=== PATIENT | female | born 1930 | race Hispanic/Latino ===

== ENCOUNTER 2020-02-16 23:37 | Inpatient (IN) | payer MEDICARE ==
[~2020-02-16] VITALS: Ht 152.4 cm; Wt 52.6 kg
[2020-02-17] VITALS (19 sets, daily range): BP systolic 125–152; BP diastolic 45–69
[2020-02-17] MEDS ORDERED: PROPOFOL 1000 MG/100 ML 100 ML IV ONE (00:13)
[2020-02-17] MEDS ORDERED: ACETAMINOPHEN 120 MG SUPPOSITORY RC ONE (00:45)
[2020-02-17] MEDS ORDERED: ZOSYN 3.375GM+NS 50ML 50 ML IV ONE (01:27)
[2020-02-17] MEDS ORDERED: ACETAMINOPHEN 650 MG SUPPOSITORY RC ONE (01:29)
[2020-02-17 01:42] LABS: BASOPHILS % (AUTO) 0.2 % (0.0-5.0); EOSINOPHILS % (AUTO) 0.4 % (0.0-8.0); HEMATOCRIT 45.5 % (36-48); LYMPHOCYTES % (AUTO) 8.3 % (21.0-51.0); MEAN CORPUSCULAR HEMOGLOBIN 27.1 pg (27.0-33.0); MEAN CORPUSCULAR HGB CONC 28.6 g/dL (32.0-36.0); MEAN CORPUSCULAR VOLUME 94.8 fL (79-99); MONOCYTES % (AUTO) 5.5 % (3.0-13.0); NUCLEATED RED BLOOD CELLS 1.4 % (0.0-0.19); PLATELET COUNT (AUTO) 158 K/uL (130-400); RED CELL DISTRIBUTION WIDTH 23.8 % (11.0-15.5)
[2020-02-17 01:47] LABS: APPEARANCE,URINE Cloudy (CLEAR); BILIRUBIN,URINE Moderate (NEGATIVE); COLOR,URINE Dark Yellow (YELLOW); GLUCOSE, URINE (UA) Negative (NEGATIVE); KETONES,URINE Trace mg/dL (NEGATIVE); LEUKOCYTE ESTERASE ,URINE Small (NEGATIVE); NITRATE,URINE Negative (NEGATIVE); OCCULT BLOOD,URINE Moderate (NEGATIVE); PROTEIN,URINE Trace mg/dL (NEGATIVE)
[2020-02-17 02:00] LABS: INR 1.12 (0.85-1.15); PARTIAL THROMBOPLASTIN TIME 24.4 SEC (26.3-35.5)
[2020-02-17 02:01] LABS: ABG BASE EXCESS -2.4 mmol/L (-2.0-3.0); ABG HCO3 18.4 mmol/L (21.0-28.0); ABG OXYGEN SATURATION 99.8 % (95.0-99.0); ABG PCO2 23 mmHg (32-45)
[2020-02-17 02:03] LABS: AMORPHOUS SEDIMENT,UR Few /LPF (None Seen); BACTERIA,URINE Moderate /HPF (None Seen); MUCUS,URINE Moderate LPF (None Seen); SQUAMOUS EPITHELIAL CELL,UR Moderate /HPF (0-2)
[2020-02-17 02:23] LABS: ALBUMIN 2.4 g/dL (3.5-5.0); CREATININE 2.4 mg/dL (0.5-1.5); POTASSIUM 3.7 mmol/L (3.5-5.1); TOTAL PROTEIN, SERUM 7.2 g/dL (6.0-8.3)
[2020-02-17 02:30] LABS: TROPONIN I 0.91 ng/mL (0.00-0.06)
[2020-02-17] MEDS ORDERED: 1/2 NORMAL SALINE 1,000 ML IV ONE (03:46)
[2020-02-17] MEDS ORDERED: NOREPINEPHRINE 4MG/NS 250ML IV SCH (04:30)
[2020-02-17 05:18] LABS: BASOPHILS % (AUTO) 0.2 % (0.0-5.0); EOSINOPHILS % (AUTO) 0.1 % (0.0-8.0); HEMATOCRIT 38.5 % (36-48); LYMPHOCYTES % (AUTO) 11.1 % (21.0-51.0); MEAN CORPUSCULAR HEMOGLOBIN 26.8 pg (27.0-33.0); MEAN CORPUSCULAR HGB CONC 28.8 g/dL (32.0-36.0); MONOCYTES % (AUTO) 4.6 % (3.0-13.0); NEUTROPHILS % (AUTO) 82.2 % (40.0-77.0); NUCLEATED RED BLOOD CELLS 1.8 % (0.0-0.19); PLATELET COUNT (AUTO) 119 K/uL (130-400); RED BLOOD CELL COUNT(AUTO) 4.14 MIL/uL (4.00-5.50); RED CELL DISTRIBUTION WIDTH 23.7 % (11.0-15.5); WHITE BLOOD COUNT (AUTO) 18.2 K/uL (4.8-10.8)
[2020-02-17 05:32] LABS: CREATININE 1.9 mg/dL (0.5-1.5); MAGNESIUM 2.4 mg/dL (1.80-2.40); PHOSPHORUS 2.6 mg/dL (2.5-4.9); TOTAL PROTEIN, SERUM 6.1 g/dL (6.0-8.3)
[2020-02-17 05:46] LABS: POTASSIUM 2.9 mmol/L (3.5-5.1)
[2020-02-17] MEDS ORDERED: POTASSIUM CHLORIDE 20MEQ/100ML 100 ML IV ONE (05:59)
--- NOTE | 2020-02-17 07:45 | NUR ---
FROM ER TO ICU. VS STABLE PT SEDATED WITH DIPRIVAN. RESPONDS TO PAINFUL STIMULUS. BRUISING AND FRAIL SKIN NOTED TO EXTREMITIES,SKIN TEAR TO LEFT BUTTOCK. PICTURES WILL BE TAKEN
[2020-02-17] MEDS ORDERED: HEPARIN SODIUM 5000UNIT/ML 1ML VIAL SQ SCH (09:00)
[2020-02-17] MEDS ORDERED: QUET100T33 PO (09:25)
[2020-02-17] MEDS ORDERED: SERT25TA5 PO (09:25)
[2020-02-17] MEDS ORDERED: MEMA10TA55 PO (09:25)
[2020-02-17] MEDS ORDERED: DONE10TA43 PO (09:25)
[2020-02-17] MEDS ORDERED: BUSP10TA3 PO (09:25)
[2020-02-17] MEDS ORDERED: METF-444 PO (09:25)
[2020-02-17] MEDS ORDERED: RALO60TA13 PO (09:25)
[2020-02-17] MEDS ORDERED: ERGO500014 PO (09:25)
[2020-02-17] MEDS ORDERED: MIDO5TAB4 PO (09:25)
[2020-02-17] MEDS ORDERED: MELO-108 PO (09:25)
[2020-02-17] MEDS ORDERED: MEGE400O5 (09:25)
[2020-02-17] MEDS: PANTOPRAZOLE 40 MG/VIAL IVP SCH (09:47)
--- NOTE | 2020-02-17 10:08 | NUR ---
FAMILY UPDATE. BENITEZ LIU. SHE WAS ABLE TO GIVE ME HX AND HOME MEDS
[2020-02-17] MEDS ORDERED: SUCCINYLCHOLINE CHLORIDE 20 MG/ML 10 ML VIAL IVP ONE (10:34)
[2020-02-17] MEDS ORDERED: ETOMIDATE 2 MG/ML 10 ML VIAL IVP ONE (10:34)
[2020-02-17] MEDS ORDERED: POTASSIUM CHLORIDE 10% ELIXIR 20 MEQ/15 ML UDCUP ONE (10:38)
[2020-02-17] MEDS ORDERED: POTASSIUM CHLORIDE 20MEQ/100ML 100 ML IV PRN (10:45)
[2020-02-17] MEDS ORDERED: LIDOCAINE HCL-MPF 1% 2ML VIAL IV PRN (10:45)
[2020-02-17] MEDS: POTASSIUM CHLORIDE 10% ELIXIR 20 MEQ/15 ML UDCUP PO PRN (11:32)
[2020-02-17] MEDS: PROPOFOL 1000 MG/100 ML 100 ML IV SCH (11:36)
[2020-02-17 12:32] LABS: BILIRUBIN,URINE Negative (NEGATIVE); COLOR,URINE Dark Yellow (YELLOW); GLUCOSE, URINE (UA) Negative (NEGATIVE); KETONES,URINE Trace mg/dL (NEGATIVE); LEUKOCYTE ESTERASE ,URINE Moderate (NEGATIVE); NITRATE,URINE Negative (NEGATIVE); OCCULT BLOOD,URINE Small (NEGATIVE); PROTEIN,URINE Trace mg/dL (NEGATIVE)
[2020-02-17 12:36] LABS: APPEARANCE,URINE SLIGHTLY CLOUDY (CLEAR)
[2020-02-17 12:58] LABS: BACTERIA,URINE Few /HPF (None Seen)
[2020-02-17] MEDS: WATER IV SCH ×2 (13:00→17:23)
[2020-02-17] MEDS: DEXTROSE 5% IV SCH ×2 (13:00→17:23)
[2020-02-17] MEDS: POTASSIUM CHLORIDE IV SCH ×2 (13:00→17:23)
[2020-02-17 13:12] LABS: URIC ACID CRYSTALS,URINE Few /LPF (None Seen)
[2020-02-17] MEDS: ZOSYN 3.375GM+NS 50ML 50 ML IV SCH ×2 (13:25→13:46)
--- NOTE | 2020-02-17 13:25 | NUR ---
[facility] CONSULT PATIENT ASSESSED REQUESTED: PATIENT PRESENTS WITH PRESSURE ULCERS TO LEFT/ RIGHT BUTTOCKS; [facility] RECOMMENDATIONS SUBMITTED. Addendum: 02/17/20 at 1326 by HUNTER GARCIA LVN LVN W Amended: Links added.
[2020-02-17] MEDS: POTASSIUM CHLORIDE 20 MEQ in DEXTROSE 5%-WATER 1,000 ML IV SCH ×2 (13:56→22:01)
[2020-02-17 14:03] LABS: CREATININE 1.8 mg/dL (0.5-1.5); POTASSIUM 3.3 mmol/L (3.5-5.1)
[2020-02-17 15:22] LABS: INR 1.09 (0.85-1.15); PARTIAL THROMBOPLASTIN TIME 24.2 SEC (26.3-35.5); PROTHROMBIN TIME 11.7 SEC (9.6-11.6)
--- NOTE | 2020-02-17 16:24 | NUR ---
RD NOTIFICATION Tube Feeding Recommendation: Suplena secondary to renal dysfunction. Initiate at 15mls/hr, rec to advance as tolerated to goal of 35mls/hr (1508kcal/38gm protein). Pt with Propofol 6mls/hr. Noted elevated serum sodium (172); recommend increased H2O flushes: 165mls Q4hrs. Pt with AMS, Sepsis. Home Tube Feeding Regimen: Vital AF 1.2 @40mls/hr. RN reports Pt tolerating. Recommend to continue once Renal function has stabilized. RD to continue to monitor. Please notify as additional nutrition concerns arise. Thank you. Addendum: 02/17/20 at [address] Amended: Links added.
--- NOTE | 2020-02-17 18:00 | NUR ---
PICC LINE PLACED WITHOUT INCIDENT X RAY TAKEN, PLACEMENT VERIFIED
[2020-02-17] MEDS: HEPARIN SODIUM 5000UNIT/ML 1ML VIAL SQ SCH (20:44)
[2020-02-18] VITALS (25 sets, daily range): BP systolic 117–151; BP diastolic 56–87
[2020-02-18] MEDS: PROPOFOL 1000 MG/100 ML 100 ML IV SCH (01:17)
[2020-02-18 03:47] LABS: MEAN CORPUSCULAR HEMOGLOBIN 27.5 pg (27.0-33.0); MEAN CORPUSCULAR HGB CONC 29.4 g/dL (32.0-36.0); MEAN CORPUSCULAR VOLUME 93.3 fL (79-99); PLATELET COUNT (AUTO) 101 K/uL (130-400); RED BLOOD CELL COUNT(AUTO) 3.75 MIL/uL (4.00-5.50); RED CELL DISTRIBUTION WIDTH 23.1 % (11.0-15.5); WHITE BLOOD COUNT (AUTO) 16.8 K/uL (4.8-10.8)
[2020-02-18 04:06] LABS: ALBUMIN 1.8 g/dL (3.5-5.0); BILIRUBIN,TOTAL 0.6 mg/dL (0.2-1.0); CREATININE 1.7 mg/dL (0.5-1.5); POTASSIUM 4.5 mmol/L (3.5-5.1); TOTAL PROTEIN, SERUM 5.7 g/dL (6.0-8.3)
[2020-02-18 04:22] LABS: B-TYPE NATRIURETIC PEPTIDE 184 pg/mL (0-100)
[2020-02-18 07:21] LABS: ABG BASE EXCESS -7.2 mmol/L (-2.0-3.0); ABG PCO2 22 mmHg (32-45)
[2020-02-18] MEDS: HEPARIN SODIUM 5000UNIT/ML 1ML VIAL SQ SCH ×2 (10:22→20:51)
[2020-02-18] MEDS: ASPIRIN 81MG TAB.CHEW PO SCH (10:29)
[2020-02-18] MEDS: PANTOPRAZOLE 40 MG/VIAL IVP SCH (10:46)
[2020-02-18] MEDS ORDERED: WATER IV SCH (11:00)
[2020-02-18] MEDS ORDERED: POTASSIUM CHLORIDE IV SCH (11:00)
[2020-02-18] MEDS ORDERED: DEXTROSE 5% IV SCH (11:00)
[2020-02-18] MEDS: PHARMACY COMMUNICATION MISC SCH ×3 (12:45→13:43)
[2020-02-18] MEDS ORDERED: FENTANYL CITRATE PF 50 MCG/1 ML 2ML VIAL IVP PRN (13:15)
[2020-02-18] MEDS: ZOSYN 3.375GM+NS 50ML 50 ML IV SCH (13:19)
[2020-02-18] MEDS: WATER IV SCH ×2 (13:40→21:45)
[2020-02-18] MEDS: POTASSIUM CHLORIDE IV SCH ×2 (13:40→21:45)
[2020-02-18] MEDS: DEXTROSE 5% IV SCH ×2 (13:40→21:45)
[2020-02-18] MEDS: INSULIN HUMULIN R 100 UNIT/ML 3ML SQ SCH ×2 (16:30→20:59)
--- NOTE | 2020-02-18 17:06 | NUR ---
cm note pt currently on ventilator, spoke to leo davis via phone and states pt resides with her at home. is primaily in bed, does have a w/c , has a walker but never uses. no other dme, daughter is pt's provider and 3-4 1/2 hrs per day. states dc plan is for home, but is open to md recomendations for snf or rehabs as needed. Addendum: 02/18/20 at 1711 by CATHI BRYSON CM Amended: Links added.
[2020-02-18] MEDS: LACTULOSE 20 GM/30 ML UDCUP PO SCH (20:49)
[2020-02-19] VITALS (25 sets, daily range): BP systolic 107–165; BP diastolic 56–84
[2020-02-19] MEDS: ZOSYN 3.375GM+NS 50ML 50 ML IV SCH ×2 (00:54→12:07)
[2020-02-19 06:17] LABS: HEMATOCRIT 32.5 % (36-48); MEAN CORPUSCULAR HEMOGLOBIN 27.4 pg (27.0-33.0); MEAN CORPUSCULAR HGB CONC 30.8 g/dL (32.0-36.0); NUCLEATED RED BLOOD CELLS 2.5 % (0.0-0.19); PLATELET COUNT (AUTO) 96 K/uL (130-400); RED BLOOD CELL COUNT(AUTO) 3.65 MIL/uL (4.00-5.50); RED CELL DISTRIBUTION WIDTH 22.7 % (11.0-15.5); WHITE BLOOD COUNT (AUTO) 15.1 K/uL (4.8-10.8)
[2020-02-19 06:25] LABS: CREATININE 1.5 mg/dL (0.5-1.5); POTASSIUM 4.5 mmol/L (3.5-5.1)
[2020-02-19 06:27] LABS: % IRON SATURATION 20.5 % (22-44)
[2020-02-19 06:31] LABS: ALBUMIN 1.7 g/dL (3.5-5.0); BILIRUBIN,TOTAL 0.6 mg/dL (0.2-1.0); TOTAL PROTEIN, SERUM 5.6 g/dL (6.0-8.3)
[2020-02-19] MEDS: INSULIN HUMULIN R 100 UNIT/ML 3ML SQ SCH ×4 (06:37→20:47)
[2020-02-19 07:29] LABS: BAND NEUTROPHILS % (MANUAL) 5 % (0-2); EOSINOPHILS % (MANUAL) 3 % (1-6); LYMPHOCYTES % (MANUAL) 7 % (22-44); MONOCYTES % (MANUAL) 5 % (2-9); SEGMENTED NEUTROPHILS % 80 % (40-70)
[2020-02-19 07:30] LABS: MAN.DIFF COMMENT-IMPRESSION MANUAL DIFFERENTIAL; PLATELET MORPHOLOGY COMMENT DECREASED
--- NOTE | 2020-02-19 09:00 | NUR ---
Dr. Vidal has been made aware of purulent drainage from midline incision. Orders have been given and followed Addendum: 02/19/20 at 1138 by CAMDEN GUILLAUME RN RN Disregard note, Wrong Patient
[2020-02-19] MEDS: PANTOPRAZOLE 40 MG/VIAL IVP SCH (09:04)
[2020-02-19] MEDS: ASPIRIN 81MG TAB.CHEW PO SCH (09:04)
[2020-02-19] MEDS: LACTULOSE 20 GM/30 ML UDCUP PO SCH ×2 (09:04→20:31)
[2020-02-19] MEDS: HEPARIN SODIUM 5000UNIT/ML 1ML VIAL SQ SCH ×2 (09:10→20:33)
[2020-02-19 10:06] LABS: ABG BASE EXCESS -6.8 mmol/L (-2.0-3.0); ABG HCO3 14.2 mmol/L (21.0-28.0); ABG OXYGEN SATURATION 98.7 % (95.0-99.0); ABG PCO2 20 mmHg (32-45)
--- NOTE | 2020-02-19 10:30 | NUR ---
Dr. Olmedo has been made aware of purulent drainage from incision site. Dr. olmedo has removed adilia and ordered wet to dry packing over Incision. Addendum: 02/19/20 at 1137 by CAMDEN GUILLAUME RN RN Disregard Note, Wrong patient
[2020-02-19] MEDS: DEXTROSE 5% IV SCH (11:48)
[2020-02-19] MEDS: POTASSIUM CHLORIDE IV SCH (11:48)
[2020-02-19] MEDS: WATER IV SCH (11:48)
[2020-02-20] VITALS (22 sets, daily range): BP systolic 121–180; BP diastolic 50–102
[2020-02-20] MEDS: ZOSYN 3.375GM+NS 50ML 50 ML IV SCH ×2 (00:09→14:22)
[2020-02-20 03:55] LABS: HEMATOCRIT 30.9 % (36-48); MEAN CORPUSCULAR HEMOGLOBIN 26.9 pg (27.0-33.0); MEAN CORPUSCULAR HGB CONC 30.4 g/dL (32.0-36.0); MEAN CORPUSCULAR VOLUME 88.5 fL (79-99); PLATELET COUNT (AUTO) 103 K/uL (130-400); RED BLOOD CELL COUNT(AUTO) 3.49 MIL/uL (4.00-5.50); RED CELL DISTRIBUTION WIDTH 23.1 % (11.0-15.5); WHITE BLOOD COUNT (AUTO) 13.4 K/uL (4.8-10.8)
[2020-02-20 04:07] LABS: CREATININE 1.5 mg/dL (0.5-1.5); POTASSIUM 3.7 mmol/L (3.5-5.1)
[2020-02-20] MEDS: INSULIN HUMULIN R 100 UNIT/ML 3ML SQ SCH ×4 (06:18→21:00)
--- NOTE | 2020-02-20 07:46 | NUR ---
PLACED ON CPAP.TOLERATING WITH GOOD TIDAL VOLUMES. RATE OF 16-18 WILL CONTINUE TO MONITOR
[2020-02-20] MEDS: LACTULOSE 20 GM/30 ML UDCUP PO SCH ×2 (09:00→20:29)
[2020-02-20] MEDS: ASPIRIN 81MG TAB.CHEW PO SCH (09:42)
[2020-02-20 09:43] LABS: ABG BASE EXCESS -5.9 mmol/L (-2.0-3.0); ABG HCO3 14.8 mmol/L (21.0-28.0); ABG PCO2 20 mmHg (32-45)
[2020-02-20] MEDS: HEPARIN SODIUM 5000UNIT/ML 1ML VIAL SQ SCH ×2 (09:43→21:20)
[2020-02-20] MEDS: PANTOPRAZOLE 40 MG/VIAL IVP SCH (09:44)
[2020-02-20] MEDS: POTASSIUM CHLORIDE IV SCH (14:26)
[2020-02-20] MEDS: DEXTROSE 5% IV SCH (14:26)
[2020-02-20] MEDS: WATER IV SCH (14:26)
[2020-02-20] MEDS ORDERED: PROPOFOL 1000 MG/100 ML 100 ML IV ONE (15:00)
[2020-02-20] MEDS ORDERED: HYDRALAZINE HCL 20 MG/ML VIAL IV PRN (15:00)
--- NOTE | 2020-02-20 15:35 | NUR ---
TAKEN TO MRI WITHOUT INCIDENT
--- NOTE | 2020-02-20 15:36 | NUR ---
BRIAN FOLLOW UP NOTE Pt tolerating Tube feeding, pending weaning trials. Continue Suplena formula at this time. RD to continue to monitor. Please notify BRIAN as additional nutrition concerns arise. Thank you. Addendum: 02/20/20 at [address] Amended: Links added.
--- NOTE | 2020-02-20 16:30 | NUR ---
UPDATED DAUGHTER BENITEZ ON PTS CONDITION
[2020-02-20] MEDS: PROPOFOL 1000 MG/100 ML 100 ML IV SCH (16:38)
[2020-02-21] VITALS (24 sets, daily range): BP systolic 115–166; BP diastolic 46–66
[2020-02-21] MEDS: ZOSYN 3.375GM+NS 50ML 50 ML IV SCH ×2 (00:08→12:40)
[2020-02-21] MEDS: PROPOFOL 1000 MG/100 ML 100 ML IV SCH (02:52)
[2020-02-21] MEDS: INSULIN HUMULIN R 100 UNIT/ML 3ML SQ SCH ×4 (05:58→20:03)
[2020-02-21 06:19] LABS: HEMATOCRIT 28.9 % (36-48); MEAN CORPUSCULAR HGB CONC 30.1 g/dL (32.0-36.0); MEAN CORPUSCULAR VOLUME 89.8 fL (79-99); PLATELET COUNT (AUTO) 123 K/uL (130-400); RED BLOOD CELL COUNT(AUTO) 3.22 MIL/uL (4.00-5.50); RED CELL DISTRIBUTION WIDTH 23.1 % (11.0-15.5); WHITE BLOOD COUNT (AUTO) 11.6 K/uL (4.8-10.8)
[2020-02-21 06:30] LABS: CREATININE 1.2 mg/dL (0.5-1.5); MAGNESIUM 1.9 mg/dL (1.80-2.40); PHOSPHORUS 3.4 mg/dL (2.5-4.9); POTASSIUM 3.5 mmol/L (3.5-5.1)
[2020-02-21] MEDS: LACTULOSE 20 GM/30 ML UDCUP PO SCH ×2 (09:00→09:26)
[2020-02-21] MEDS: MAGNESIUM 2GM PREMIX 50ML 50 ML IV PRN (09:13)
[2020-02-21] MEDS: HEPARIN SODIUM 5000UNIT/ML 1ML VIAL SQ SCH ×2 (09:25→20:06)
[2020-02-21] MEDS: ASPIRIN 81MG TAB.CHEW PO SCH (09:25)
[2020-02-21] MEDS ORDERED: SODIUM BICARBONATE 650 MG TAB PO PRN (10:30)
[2020-02-21] MEDS ORDERED: LACTULOSE 20 GM/30 ML UDCUP PO PRN (11:15)
[2020-02-21] MEDS: PANTOPRAZOLE 40 MG/VIAL IVP SCH (12:00)
[2020-02-21 12:53] LABS: ABG BASE EXCESS -6.2 mmol/L (-2.0-3.0); ABG HCO3 15.6 mmol/L (21.0-28.0); ABG OXYGEN SATURATION 96.5 % (95.0-99.0); ABG PCO2 23 mmHg (32-45)
--- NOTE | 2020-02-21 13:40 | NUR ---
CM NOTE/DC PLANNING PER COLEEN RN, PRIMARY NURSE, PATIENT NOT ABLE TO TALK AT THE MOMENT. JEANNE AT [facility] CALLED ([phone]) FOR DC PLANNING. HOME VS SNF. PER ANNA ANGEL IN NETWORK FOLLOWS: [facility] [place] [facility] DAUGHTER, BENITEZ LIU, NO ANSWER. UNABLE TO LEAVE VOICEMAIL. CM TO FOLLOW UP ACCORDINGLY.. PATIENT CURRENTLY VENTED AND FAILED CPAP TRIALS.
--- NOTE | 2020-02-21 14:10 | NUR ---
PT EXTUBATED BY RT. BALLOON DEFLATED, PT TOLERATED PROCEDURE. OGT REMOVED ALONG WITH ETT TUBE. PT PLACED ON VENTI MASK AT 40%
--- NOTE | 2020-02-21 16:31 | NUR ---
RD UPDATE PT TOLERATING TUBE FEEDING OF SUPLENA @30MLS/HR. PT PENDING WEANING TRIALS. RECOMMEND TO CONTINUE POC. RD TO CONTINUE TO MONITOR.
[2020-02-22] VITALS (14 sets, daily range): BP systolic 128–151; BP diastolic 43–70
[2020-02-22] MEDS: ZOSYN 3.375GM+NS 50ML 50 ML IV SCH ×2 (01:28→12:31)
[2020-02-22 03:34] LABS: HEMATOCRIT 26.3 % (36-48); MEAN CORPUSCULAR HEMOGLOBIN 27.5 pg (27.0-33.0); MEAN CORPUSCULAR HGB CONC 30.8 g/dL (32.0-36.0); MEAN CORPUSCULAR VOLUME 89.2 fL (79-99); PLATELET COUNT (AUTO) 153 K/uL (130-400); RED BLOOD CELL COUNT(AUTO) 2.95 MIL/uL (4.00-5.50); RED CELL DISTRIBUTION WIDTH 23.4 % (11.0-15.5); WHITE BLOOD COUNT (AUTO) 10.2 K/uL (4.8-10.8)
[2020-02-22 03:47] LABS: MAGNESIUM 2.2 mg/dL (1.80-2.40); POTASSIUM 3.1 mmol/L (3.5-5.1)
[2020-02-22] MEDS: INSULIN HUMULIN R 100 UNIT/ML 3ML SQ SCH ×4 (05:20→21:00)
[2020-02-22] MEDS: POTASSIUM CHLORIDE 10% ELIXIR 20 MEQ/15 ML UDCUP PO PRN ×3 (07:23→12:31)
[2020-02-22] MEDS: PANTOPRAZOLE 40 MG/VIAL IVP SCH (09:28)
[2020-02-22] MEDS: ASPIRIN 81MG TAB.CHEW PO SCH (09:29)
[2020-02-22] MEDS: HEPARIN SODIUM 5000UNIT/ML 1ML VIAL SQ SCH ×2 (09:33→21:32)
--- NOTE | 2020-02-22 13:06 | NUR ---
RD UPDATE Pt s/p extubation per EMR. Improved renal function, decreased potassium levels. Recommend modify Tube feeding Formula to Vital 1.2, Goal Rate 40mls/hr (1152kcal/72gm Pro). Rec Flushes 110ml Q12hrs. RN notified for tube feeding update. RD to continue to monitor. Please notify as additional nutrition concerns arise. Thank you.
[2020-02-23 00:04] VITALS: BP 140/67
[2020-02-23] MEDS: ZOSYN 3.375GM+NS 50ML 50 ML IV SCH ×2 (00:21→12:38)
[2020-02-23 04:00] VITALS: BP 144/72
[2020-02-23 04:08] LABS: HEMATOCRIT 28.6 % (36-48); MEAN CORPUSCULAR HEMOGLOBIN 27.1 pg (27.0-33.0); MEAN CORPUSCULAR HGB CONC 29.7 g/dL (32.0-36.0); MEAN CORPUSCULAR VOLUME 91.1 fL (79-99); PLATELET COUNT (AUTO) 210 K/uL (130-400); RED BLOOD CELL COUNT(AUTO) 3.14 MIL/uL (4.00-5.50); RED CELL DISTRIBUTION WIDTH 24.5 % (11.0-15.5); WHITE BLOOD COUNT (AUTO) 9.5 K/uL (4.8-10.8)
[2020-02-23 04:27] LABS: CREATININE 0.8 mg/dL (0.5-1.5); POTASSIUM 4.6 mmol/L (3.5-5.1)
[2020-02-23] MEDS: INSULIN HUMULIN R 100 UNIT/ML 3ML SQ SCH ×4 (07:30→20:53)
[2020-02-23 08:09] VITALS: BP 124/75
--- NOTE | 2020-02-23 10:00 | NUR ---
HOLD EVALUATION. APPOINTMENT SCHEDULER COORDINATED WITH NURSE RANGEL. Pt CURRENTLY ON NG TUBE FEEDING. Pt REFUSING TO PARTICIPATE DURING BEDSIDE EVAL. Pt REMAINED WITH MOUTH CLOSED EVEN WITH MAX CUES PROVIDED DURING ATTEMPTED P.O. TRIALS. APPOINTMENT SCHEDULER WILL CONTINUE TO FOLLOW Pt AND ATTEMPT EVALUATION TOMORROW. Addendum: 02/23/[address] KARY GOLD Amended: Links added.
[2020-02-23] MEDS: PANTOPRAZOLE 40 MG/VIAL IVP SCH ×2 (10:03→20:13)
[2020-02-23] MEDS: ASPIRIN 81MG TAB.CHEW PO SCH (10:03)
[2020-02-23] MEDS: HEPARIN SODIUM 5000UNIT/ML 1ML VIAL SQ SCH ×2 (10:14→20:20)
[2020-02-23 11:00] VITALS: BP 126/58
[2020-02-23 16:00] VITALS: BP 145/62
[2020-02-23 20:12] VITALS: BP 145/66
[2020-02-24] VITALS (7 sets, daily range): BP systolic 122–145; BP diastolic 59–74
[2020-02-24] MEDS: ZOSYN 3.375GM+NS 50ML 50 ML IV SCH (01:33)
[2020-02-24 04:01] LABS: HEMATOCRIT 26.6 % (36-48); MEAN CORPUSCULAR HEMOGLOBIN 28.1 pg (27.0-33.0); MEAN CORPUSCULAR HGB CONC 30.8 g/dL (32.0-36.0); MEAN CORPUSCULAR VOLUME 91.1 fL (79-99); PLATELET COUNT (AUTO) 253 K/uL (130-400); RED BLOOD CELL COUNT(AUTO) 2.92 MIL/uL (4.00-5.50); RED CELL DISTRIBUTION WIDTH 24.2 % (11.0-15.5); WHITE BLOOD COUNT (AUTO) 8.6 K/uL (4.8-10.8)
[2020-02-24 04:16] LABS: CREATININE 0.8 mg/dL (0.5-1.5); POTASSIUM 4.2 mmol/L (3.5-5.1)
[2020-02-24] MEDS: INSULIN HUMULIN R 100 UNIT/ML 3ML SQ SCH ×4 (06:41→20:52)
--- NOTE | 2020-02-24 09:10 | NUR ---
DYSPHAGIA EVAL COMPLETED +S/S OF ASPIRATION. RECOMMEND CONTINUATION OF NG TUBE FEEDING PENDING MBSS. FRICTION WELDING MACHINE OPERATOR COORDINATED WITH NURSE UREÑA. Addendum: 02/24/[address] KARY GOLD Amended: Links added.
[2020-02-24] MEDS: PANTOPRAZOLE 40 MG/VIAL IVP SCH ×2 (09:39→20:31)
[2020-02-24] MEDS: HEPARIN SODIUM 5000UNIT/ML 1ML VIAL SQ SCH (09:41)
--- NOTE | 2020-02-24 12:29 | NUR ---
MBSS COMPLETED. RECOMMEND CONTINUATION OF NG TUBE FEEDINGS WITH THERAPEUTIC PLEASURE FEEDS OF PUREE, THIN LIQUID VIA TSP. Pt PRESENTS WITH SEVERE ORAL AND MODERATE PHARYNGEAL DYSPHAGIA. CUSTOMS INVESTIGATOR WILL REEVALUATE Pt NEXT WEEK. RECOMMENDATIONS: DYSPHAGIA THERAPY 2-4XWEEK TO INCREASE ORAL MOTOR STRENGTH AND PHARYNGEAL SWALLOW: LTG#1: Pt WILL TOLERATE LEAST RESTRICTIVE DIET TO MEET NUTRITION/HYDRATION WITH NO S/S OF ASPIRATION. LTG#2: SKILLED EDUCATION Pt/FAMILY/STAFF STG#1: Pt WILL PARTICIPATE IN LARYNGEAL ELEVATION/EXCURSION EXERCISES WITH 80% ACCURACY. STG#2: Pt WILL PARTICIPATE IN TONGUE BASE RETRACTION EXERCISES WITH 80% ACCURACY. STG#3: Pt WILL PARTICIPATE IN ORAL MOTOR EXERCISES WITH 80% ACCURACY. STG#4: Pt WILL TOLERATE THERAPEUTIC TRIALS OF PUREE AND THIN LIQUIDS VIA TSP WITH NO OVERT S/S OF ASPIRATION. STG#5: Pt WILL BE ABLE TO PARTICIPATE IN MBSS AFTER 2-4 WEEKS OF THERAPEUTIC INTERVENTION. STG#6: SKILLED EDUCATION Pt/FAMILY/STAFF. CUSTOMS INVESTIGATOR COORDINATED CARE WITH NURSE UREÑA. Addendum: 02/24/[address] KARY GOLD Amended: Links added.
[2020-02-24] MEDS: ASPIRIN 81MG TAB.CHEW PO SCH (15:02)
[2020-02-24] MEDS ORDERED: DEXTROSE 10%-WATER 1,000 ML IV SCH (18:45)
[2020-02-25 03:49] VITALS: BP 135/57
[2020-02-25 04:39] LABS: MEAN CORPUSCULAR HEMOGLOBIN 27.8 pg (27.0-33.0); MEAN CORPUSCULAR VOLUME 92.8 fL (79-99); PLATELET COUNT (AUTO) 289 K/uL (130-400); RED BLOOD CELL COUNT(AUTO) 2.91 MIL/uL (4.00-5.50); RED CELL DISTRIBUTION WIDTH 23.6 % (11.0-15.5); WHITE BLOOD COUNT (AUTO) 9.6 K/uL (4.8-10.8)
[2020-02-25 04:50] LABS: CREATININE 0.8 mg/dL (0.5-1.5); POTASSIUM 3.5 mmol/L (3.5-5.1)
[2020-02-25] MEDS: INSULIN HUMULIN R 100 UNIT/ML 3ML SQ SCH ×2 (05:51→18:00)
[2020-02-25] MEDS: POTASSIUM CHLORIDE 10% ELIXIR 20 MEQ/15 ML UDCUP PO PRN (06:22)
[2020-02-25 07:30] VITALS: BP 118/58
[2020-02-25] MEDS: PANTOPRAZOLE 40 MG/VIAL IVP SCH ×2 (09:00→22:20)
[2020-02-25] MEDS: ASPIRIN 81MG TAB.CHEW PO SCH (09:00)
[2020-02-25 11:30] VITALS: BP 132/59
[2020-02-25 15:30] VITALS: BP 137/60
--- NOTE | 2020-02-25 19:40 | NUR ---
PM Assessment Received pt with D10 at 50cc/hr infusing well via PICC line, reported pt still need to re- start Vital AF 1.2 claudio at 40cc/hr as feeding pump was not working, once feeding re-started to stop D10 infusion. Pt noted awake but non verbal, follow simple command. Plan for a repeat MBSS on Thursday as reported. Pt's bilateral buttocks noted with stage 2 ulcers, turning Q 2 observed, barrier cream applied. PICC line also noted due for change will change it later.
[2020-02-25 20:00] VITALS: BP 122/50
[2020-02-26 03:54] LABS: HEMATOCRIT 26.1 % (36-48); MEAN CORPUSCULAR HEMOGLOBIN 28.2 pg (27.0-33.0); MEAN CORPUSCULAR HGB CONC 31.4 g/dL (32.0-36.0); MEAN CORPUSCULAR VOLUME 89.7 fL (79-99); PLATELET COUNT (AUTO) 241 K/uL (130-400); RED BLOOD CELL COUNT(AUTO) 2.91 MIL/uL (4.00-5.50); RED CELL DISTRIBUTION WIDTH 23.2 % (11.0-15.5); WHITE BLOOD COUNT (AUTO) 8.5 K/uL (4.8-10.8)
[2020-02-26 04:03] VITALS: BP 130/59
[2020-02-26 04:06] LABS: CREATININE 0.7 mg/dL (0.5-1.5); POTASSIUM 3.5 mmol/L (3.5-5.1)
[2020-02-26] MEDS: POTASSIUM CHLORIDE 10% ELIXIR 20 MEQ/15 ML UDCUP PO PRN ×2 (04:18→06:28)
[2020-02-26] MEDS: INSULIN HUMULIN R 100 UNIT/ML 3ML SQ SCH ×4 (05:37→18:00)
[2020-02-26 08:00] VITALS: BP 134/59
[2020-02-26] MEDS: ASPIRIN 81MG TAB.CHEW PO SCH (09:48)
[2020-02-26] MEDS: PANTOPRAZOLE 40 MG/VIAL IVP SCH ×2 (09:48→21:03)
[2020-02-26 12:39] VITALS: BP 146/75
[2020-02-26 16:00] VITALS: BP 144/51
[2020-02-26 20:56] VITALS: BP 135/57
[2020-02-26 23:36] VITALS: BP 134/73
[2020-02-27 04:00] VITALS: BP 148/71
[2020-02-27 05:43] LABS: HEMATOCRIT 26.4 % (36-48); MEAN CORPUSCULAR HEMOGLOBIN 27.4 pg (27.0-33.0); MEAN CORPUSCULAR HGB CONC 30.3 g/dL (32.0-36.0); MEAN CORPUSCULAR VOLUME 90.4 fL (79-99); PLATELET COUNT (AUTO) 349 K/uL (130-400); RED BLOOD CELL COUNT(AUTO) 2.92 MIL/uL (4.00-5.50); RED CELL DISTRIBUTION WIDTH 23.9 % (11.0-15.5); WHITE BLOOD COUNT (AUTO) 9.2 K/uL (4.8-10.8)
[2020-02-27 05:55] LABS: CREATININE 0.6 mg/dL (0.5-1.5); POTASSIUM 4.2 mmol/L (3.5-5.1)
[2020-02-27] MEDS: INSULIN HUMULIN R 100 UNIT/ML 3ML SQ SCH ×5 (06:00→23:13)
[2020-02-27 06:10] LABS: % IRON SATURATION 13.4 % (22-44)
[2020-02-27 08:00] VITALS: BP 142/47
[2020-02-27] MEDS: FERROUS SULFATE 325 MG TABLET.DR PO SCH (08:30)
[2020-02-27] MEDS: ASPIRIN 81MG TAB.CHEW PO SCH (08:31)
[2020-02-27] MEDS: PANTOPRAZOLE 40 MG/VIAL IVP SCH ×2 (08:31→19:42)
--- NOTE | 2020-02-27 09:35 | NUR ---
DYSPHAGIA EVAL COMPLETED RECOMMEND USP ALTERNATE MEANS OF NUTRITION/HYDRATION AT THIS TIME. Pt PRESENTS WITH MODERATE OROPHARYNGEAL DYSPHAGIA WITH NO DESIRE TO COOPERATE WITH SKILLED SPEECH THERAPY AND THERAPEUTIC P.O. TRIALS. LAST CHALKER COORDINATED WITH NURSE MENDOZA. Addendum: 02/27/[address] ALLA Amended: Links added.
[2020-02-27 12:00] VITALS: BP 159/65
--- NOTE | 2020-02-27 15:39 | NUR ---
CM NOTE/HNR REFERRAL NEW REFERRAL FOR SNF, DAUGHTER CALLED, BENITEZ. PER BENITEZ, TELEPHONE CONSENT FOR HNR. CLINICAL [facility]ACKET AND [facility] FAXED AND RECEIVED. EMS FORM FILLED OUT, PENDING DATE. PENDING COVID ASSESSMENT TO BE SIGNED AND FAXED. CM TO FOLLOW UP ACCORDINGLY. EMS FORM FILLED OUT, PENDING DATE OF TRANSFER.
--- NOTE | 2020-02-27 15:59 | NUR ---
BRIAN FOLLOW UP PT TOLERATING TUBE FEEDINGS, VITAL AF 1.2 @40MLS/HR. PT S/P DAVON MOORE. RECOMMEND PROJECT STRUCTURAL ENGINEER ALTERED MEANS NUTRITION/HYDRATION. RECOMMEND TO CONTINUE TUBE FEEDINGS. Addendum: 02/27/20 at [address] Amended: Links added.
[2020-02-27 16:00] VITALS: BP 151/75
[2020-02-27 19:00] VITALS: BP_SYST 140; BP_SYST 160; BP_DIAS 68; BP_DIAS 73
[2020-02-27 23:53] VITALS: BP 145/59
[2020-02-28 04:03] VITALS: BP 143/59
[2020-02-28 05:29] LABS: HEMATOCRIT 25.2 % (36-48); MEAN CORPUSCULAR HEMOGLOBIN 27.2 pg (27.0-33.0); MEAN CORPUSCULAR HGB CONC 29.8 g/dL (32.0-36.0); MEAN CORPUSCULAR VOLUME 91.3 fL (79-99); PLATELET COUNT (AUTO) 340 K/uL (130-400); RED BLOOD CELL COUNT(AUTO) 2.76 MIL/uL (4.00-5.50); RED CELL DISTRIBUTION WIDTH 24.1 % (11.0-15.5); WHITE BLOOD COUNT (AUTO) 7.8 K/uL (4.8-10.8)
[2020-02-28 05:39] LABS: CREATININE 0.6 mg/dL (0.5-1.5); POTASSIUM 3.7 mmol/L (3.5-5.1)
[2020-02-28] MEDS: INSULIN HUMULIN R 100 UNIT/ML 3ML SQ SCH ×3 (05:47→18:00)
[2020-02-28 08:00] VITALS: BP 134/65
[2020-02-28] MEDS: ASPIRIN 81MG TAB.CHEW PO SCH (10:50)
[2020-02-28] MEDS: PANTOPRAZOLE 40 MG/VIAL IVP SCH ×2 (10:50→22:44)
[2020-02-28] MEDS: FERROUS SULFATE 325 MG TABLET.DR PO SCH (10:50)
[2020-02-28 12:00] VITALS: BP 142/66
[2020-02-28 16:00] VITALS: BP 143/53
[2020-02-28 16:40] LABS: INR 0.93 (0.85-1.15); PROTHROMBIN TIME 10.1 SEC (9.6-11.6)
[2020-02-28 20:16] VITALS: BP 134/79
[2020-02-28 23:50] VITALS: BP 140/50
[2020-02-29] VITALS (20 sets, daily range): BP systolic 96–142; BP diastolic 41–65
[2020-02-29 05:26] LABS: BASOPHILS % (AUTO) 0.1 % (0.0-5.0); EOSINOPHILS % (AUTO) 4.3 % (0.0-8.0); HEMATOCRIT 26.2 % (36-48); LYMPHOCYTES % (AUTO) 23.4 % (21.0-51.0); MEAN CORPUSCULAR HEMOGLOBIN 28.4 pg (27.0-33.0); MEAN CORPUSCULAR HGB CONC 30.9 g/dL (32.0-36.0); MEAN CORPUSCULAR VOLUME 91.9 fL (79-99); MONOCYTES % (AUTO) 7.4 % (3.0-13.0); NEUTROPHILS % (AUTO) 64.5 % (40.0-77.0); PLATELET COUNT (AUTO) 346 K/uL (130-400); RED BLOOD CELL COUNT(AUTO) 2.85 MIL/uL (4.00-5.50); WHITE BLOOD COUNT (AUTO) 7.4 K/uL (4.8-10.8)
[2020-02-29] MEDS: INSULIN HUMULIN R 100 UNIT/ML 3ML SQ SCH ×4 (06:00→18:00)
[2020-02-29 06:15] LABS: CREATININE 0.6 mg/dL (0.5-1.5); POTASSIUM 4.1 mmol/L (3.5-5.1)
[2020-02-29] MEDS ORDERED: LIDOCAINE HCL 1% 20 ML VIAL ONE (07:33)
[2020-02-29] MEDS ORDERED: PROPOFOL 10 MG/ML 20ML VIAL IV ONE (07:33)
[2020-02-29] MEDS ORDERED: PHENYLEPHRINE HCL 10 MG/ML 1ML VIAL IV ONE (07:34)
[2020-02-29] MEDS ORDERED: CEFAZOLIN SODIUM 1 GM VIAL ONE (08:19)
--- NOTE | 2020-02-29 10:33 | NUR ---
Called Care Worker's office to notify of PEG placement and inquire of new dietary recommendations. Labs reviewed. Per bobbin coil winder Tearsa, continue with Vital 1.2 at 40 mL once PEG tube can be used.
[2020-02-29] MEDS: PANTOPRAZOLE 40 MG/VIAL IVP SCH ×2 (10:46→21:39)
--- NOTE | 2020-02-29 12:15 | NUR ---
Notified Columba Callahan NP for benchmark regarding current glucose of 63 mg/dL. Patient currently NPO, pending tube feeding to be resumed 6 hours post PEG placement. Received telephone order for hypoglycemic protocol. Addendum: 02/29/20 at 1217 by BENITEZ ZARCO RN RN Patient asymptomatic.
[2020-02-29] MEDS ORDERED: GLUCAGON 1MG KIT 1 MG ML IM PRN (12:30)
[2020-02-29] MEDS ORDERED: DEXTROSE 50%-WATER 50 ML DISP.SYRIN IV PRN (12:30)
--- NOTE | 2020-02-29 13:49 | NUR ---
Patient sleeping, asymptomatic after administration of Dextrose 50 mL. Current glucose level 129 mg/dL. Will continue to monitor.
[2020-02-29] MEDS: FERROUS SULFATE 325 MG TABLET.DR PO SCH (14:59)
[2020-02-29] MEDS: ACETAMINOPHEN 650 MG SUPPOSITORY RC PRN (17:30)
[2020-03-01 04:06] VITALS: BP 127/63
[2020-03-01] MEDS: INSULIN HUMULIN R 100 UNIT/ML 3ML SQ SCH ×3 (05:47→12:00)
[2020-03-01 07:37] VITALS: BP 137/64
--- NOTE | 2020-03-01 09:22 | NUR ---
Notified Columba Callahan NP for benchmark regarding T101.5 yesterday and this morning T100.6, output of 350mL for day yesterday and 100 mL for nightshift. Checked frederick catheter placement, draining and patent. Bladder scan showed 16 mL in bladder. Received order for CBC, BMP, Mag, Blood cultures x2, to administer 1L NS with 500 mL bolus and then 100 mL/hr to complete liter. CXR, sputum culture, urine culture and flu A/B swab.
[2020-03-01 09:25] LABS: HEMATOCRIT 25.1 % (36-48); MEAN CORPUSCULAR HEMOGLOBIN 28.3 pg (27.0-33.0); MEAN CORPUSCULAR HGB CONC 30.3 g/dL (32.0-36.0); MEAN CORPUSCULAR VOLUME 93.3 fL (79-99); PLATELET COUNT (AUTO) 319 K/uL (130-400); RED BLOOD CELL COUNT(AUTO) 2.69 MIL/uL (4.00-5.50); RED CELL DISTRIBUTION WIDTH 23.6 % (11.0-15.5); WHITE BLOOD COUNT (AUTO) 9.3 K/uL (4.8-10.8)
[2020-03-01 09:36] LABS: CREATININE 0.6 mg/dL (0.5-1.5); MAGNESIUM 1.9 mg/dL (1.80-2.40)
[2020-03-01 09:57] LABS: EOSINOPHILS % (MANUAL) 5 % (1-6); LYMPHOCYTES % (MANUAL) 20 % (22-44); MAN.DIFF COMMENT-IMPRESSION MANUAL DIFFERENTIAL; PLATELET MORPHOLOGY COMMENT ADEQUATE; SEGMENTED NEUTROPHILS % 75 % (40-70)
[2020-03-01] MEDS: FERROUS SULFATE 325 MG TABLET.DR PO SCH (10:10)
[2020-03-01] MEDS: SODIUM CHLORIDE 0.9% 1000ML 1,000 ML IV SCH ×2 (10:10→15:54)
[2020-03-01] MEDS: PANTOPRAZOLE 40 MG/VIAL IVP SCH ×2 (10:10→21:01)
[2020-03-01 10:51] VITALS: BP 157/63
--- NOTE | 2020-03-01 14:09 | NUR ---
BRIAN FOLLOW UP Pt s/p PEG placement. Tube Feeding Regimen, Vital AF 1.2 @40mls resumed. BRIAN discussed with RN. Pt tolerating Tube Feeding. Recommend to continue POC. BRIAN to continue to monitor. Addendum: 03/01/20 at [address] Amended: Links added.
[2020-03-01 15:21] VITALS: BP 152/58
[2020-03-01] MEDS: ACETAMINOPHEN 650 MG SUPPOSITORY RC PRN (15:24)
[2020-03-01] MEDS: MEROPENEM 1 GM VIAL IVP SCH ×2 (15:42→22:25)
[2020-03-01] MEDS ORDERED: SODIUM CHLORIDE 3% FOR INHALATION 4 ML/AMP VIAL.NEB IH ONE (15:49)
--- NOTE | 2020-03-01 17:09 | NUR ---
Called Dr. Bolden's office to notify of consult for oliguria. Left message with office.
[2020-03-01 19:00] VITALS: BP 130/57
[2020-03-01 23:00] VITALS: BP 110/48
[2020-03-02] MEDS: SODIUM CHLORIDE 0.9% 1000ML 1,000 ML IV SCH ×2 (02:48→12:52)
[2020-03-02 03:00] VITALS: BP 113/66
[2020-03-02] MEDS: INSULIN HUMULIN R 100 UNIT/ML 3ML SQ SCH ×3 (06:00→12:00)
[2020-03-02 06:20] LABS: BASOPHILS % (AUTO) 0.2 % (0.0-5.0); EOSINOPHILS % (AUTO) 4.7 % (0.0-8.0); HEMATOCRIT 26.5 % (36-48); LYMPHOCYTES % (AUTO) 16.1 % (21.0-51.0); MEAN CORPUSCULAR HGB CONC 30.2 g/dL (32.0-36.0); MEAN CORPUSCULAR VOLUME 92.7 fL (79-99); MONOCYTES % (AUTO) 4.5 % (3.0-13.0); NEUTROPHILS % (AUTO) 74.1 % (40.0-77.0); PLATELET COUNT (AUTO) 333 K/uL (130-400); RED BLOOD CELL COUNT(AUTO) 2.86 MIL/uL (4.00-5.50); RED CELL DISTRIBUTION WIDTH 23.3 % (11.0-15.5)
[2020-03-02 06:39] LABS: CREATININE 0.5 mg/dL (0.5-1.5); POTASSIUM 3.6 mmol/L (3.5-5.1)
[2020-03-02 07:30] VITALS: BP 125/56
[2020-03-02] MEDS: FERROUS SULFATE 325 MG TABLET.DR PO SCH (08:35)
[2020-03-02] MEDS: MEROPENEM 1 GM VIAL IVP SCH ×3 (08:35→22:10)
[2020-03-02 10:27] LABS: CREATININE,URINE RANDOM 22 mg/dL (30-135)
[2020-03-02 10:47] LABS: SODIUM,URINE RANDOM 95 mmol/l (40-220)
[2020-03-02] MEDS: Vitamin B Complex/Vit C/Folic Acid GT SCH (10:58)
[2020-03-02] MEDS: PANTOPRAZOLE 40 MG/VIAL IVP SCH ×2 (10:58→21:56)
[2020-03-02 11:00] VITALS: BP 144/63
[2020-03-02 14:07] LABS: APPEARANCE,URINE CLOUDY (CLEAR); BILIRUBIN,URINE NEGATIVE (NEGATIVE); COLOR,URINE YELLOW (YELLOW); GLUCOSE, URINE (UA) NEGATIVE (NEGATIVE); KETONES,URINE NEGATIVE (NEGATIVE); LEUKOCYTE ESTERASE ,URINE LARGE (NEGATIVE); NITRATE,URINE NEGATIVE (NEGATIVE); OCCULT BLOOD,URINE MODERATE (NEGATIVE); PH,URINE 7.5 (5.0-8.0); PROTEIN,URINE NEGATIVE (NEGATIVE); UROBILINOGEN,URINE 0.2 mg/dL (0.2-1.0)
[2020-03-02 14:16] LABS: BACTERIA,URINE Moderate /HPF (None Seen)
[2020-03-02 14:17] LABS: WBC,URINE 26-50 /HPF (0-1)
[2020-03-02 14:19] LABS: AMORPHOUS SEDIMENT,UR Few /LPF (None Seen); SQUAMOUS EPITHELIAL CELL,UR 0-2 /HPF (0-2)
[2020-03-02] MEDS ORDERED: RENAL DOSE IV SCH (15:15)
[2020-03-02 16:00] VITALS: BP 127/49
[2020-03-02] MEDS ORDERED: LEVOFLOXACIN 750 MG/D5W 150 ML 150 ML IV SCH (16:00)
[2020-03-02] MEDS: LINEZOLID 600 MG/ISO-OSM 300 ML IV SCH (17:13)
[2020-03-02 20:04] VITALS: BP 111/49
[2020-03-03 00:08] VITALS: BP 140/56
[2020-03-03] MEDS: POTASSIUM CHLORIDE 10% ELIXIR 20 MEQ/15 ML UDCUP PO PRN ×2 (00:42→02:32)
[2020-03-03] MEDS: SODIUM CHLORIDE 0.9% 1000ML 1,000 ML IV SCH ×3 (04:09→23:31)
[2020-03-03] MEDS: LINEZOLID 600 MG/ISO-OSM 300 ML IV SCH (04:09)
[2020-03-03 04:12] VITALS: BP 160/70
[2020-03-03 05:54] LABS: HEMATOCRIT 24.5 % (36-48); MEAN CORPUSCULAR HEMOGLOBIN 28.4 pg (27.0-33.0); MEAN CORPUSCULAR HGB CONC 30.2 g/dL (32.0-36.0); MEAN CORPUSCULAR VOLUME 93.9 fL (79-99); RED BLOOD CELL COUNT(AUTO) 2.61 MIL/uL (4.00-5.50); RED CELL DISTRIBUTION WIDTH 23.2 % (11.0-15.5); WHITE BLOOD COUNT (AUTO) 6.6 K/uL (4.8-10.8)
[2020-03-03] MEDS: INSULIN HUMULIN R 100 UNIT/ML 3ML SQ SCH ×4 (06:00→17:34)
[2020-03-03] MEDS: MEROPENEM 1 GM VIAL IVP SCH ×3 (06:09→23:27)
[2020-03-03 06:27] LABS: ALBUMIN 1.4 g/dL (3.5-5.0); BILIRUBIN,TOTAL 0.2 mg/dL (0.2-1.0); CREATININE 0.6 mg/dL (0.5-1.5); MAGNESIUM 1.6 mg/dL (1.80-2.40); PHOSPHORUS 1.8 mg/dL (2.5-4.9); POTASSIUM 4.9 mmol/L (3.5-5.1); TOTAL PROTEIN, SERUM 5.5 g/dL (6.0-8.3); URIC ACID 2.5 mg/dL (2.6-7.2)
[2020-03-03 06:53] LABS: % IRON SATURATION 12.5 % (22-44)
[2020-03-03 07:30] VITALS: BP 141/54
[2020-03-03] MEDS: PANTOPRAZOLE 40 MG/VIAL IVP SCH ×2 (08:54→20:01)
[2020-03-03] MEDS: Vitamin B Complex/Vit C/Folic Acid GT SCH (08:54)
[2020-03-03] MEDS: FERROUS SULFATE 325 MG TABLET.DR PO SCH (08:54)
[2020-03-03] MEDS: MAGNESIUM 2GM PREMIX 50ML 50 ML IV PRN (08:55)
[2020-03-03 11:00] VITALS: BP 152/66
--- NOTE | 2020-03-03 11:00 | NUR ---
HNR F/U TATUM spoke to Maria Del Carmen with HNR. States pt is pending auth and will be following up on Thursday. TATUM GO Addendum: 03/03/20 at 1649 by JOCELYN MAKI CM Amended: Links added.
[2020-03-03 16:00] VITALS: BP 130/49
[2020-03-03 20:17] VITALS: BP 135/56
[2020-03-04] VITALS: BP 132/58
[2020-03-04 04:00] VITALS: BP 144/57
[2020-03-04] MEDS: MEROPENEM 1 GM VIAL IVP SCH ×3 (05:13→23:07)
[2020-03-04] MEDS: INSULIN HUMULIN R 100 UNIT/ML 3ML SQ SCH ×4 (06:00→17:00)
[2020-03-04 07:30] VITALS: BP 133/58
[2020-03-04] MEDS: PANTOPRAZOLE 40 MG/VIAL IVP SCH ×2 (09:00→23:07)
[2020-03-04 11:00] VITALS: BP 163/76
[2020-03-04] MEDS: FERROUS SULFATE 325 MG TABLET.DR PO SCH (11:15)
[2020-03-04] MEDS: IRON SUCROSE COMPLEX 100 MG in SODIUM CHLORIDE 0.9% 50 ML IV SCH (11:15)
[2020-03-04] MEDS: Vitamin B Complex/Vit C/Folic Acid GT SCH (11:15)
[2020-03-04] MEDS ORDERED: COMPOUND IV MISC 1 EACH IVSOLN MISC PRN (11:30)
[2020-03-04] MEDS ORDERED: MERO1VIA23 IVP (14:52)
[2020-03-04] MEDS ORDERED: PANT40SU PO (14:52)
[2020-03-04] MEDS ORDERED: FERR324T4 PO (14:52)
[2020-03-04] MEDS ORDERED: Folic Acid/Vitamin B Comp W-C GT (14:52)
[2020-03-04 16:00] VITALS: BP 128/52
[2020-03-04 20:00] VITALS: BP 140/55
[2020-03-05] VITALS (7 sets, daily range): BP systolic 106–138; BP diastolic 49–65
[2020-03-05] MEDS: SODIUM CHLORIDE 0.9% 1000ML 1,000 ML IV SCH ×2 (02:11→20:50)
--- NOTE | 2020-03-05 05:50 | NUR ---
WOUND CARE PROVIDED WOUND CARE. CHANGED ALLEVYN PAD ON SACRUM. PT ALTAGRACIA WELL. NO CHANGE IN WOUND
[2020-03-05] MEDS: INSULIN HUMULIN R 100 UNIT/ML 3ML SQ SCH ×5 (06:00→23:51)
[2020-03-05 06:49] LABS: HEMATOCRIT 21.9 % (36-48); MEAN CORPUSCULAR HEMOGLOBIN 28.3 pg (27.0-33.0); MEAN CORPUSCULAR HGB CONC 31.1 g/dL (32.0-36.0); MEAN CORPUSCULAR VOLUME 91.3 fL (79-99); PLATELET COUNT (AUTO) 284 K/uL (130-400); RED CELL DISTRIBUTION WIDTH 22.3 % (11.0-15.5); WHITE BLOOD COUNT (AUTO) 5.8 K/uL (4.8-10.8)
[2020-03-05 07:46] LABS: CREATININE 0.4 mg/dL (0.5-1.5); POTASSIUM 3.4 mmol/L (3.5-5.1)
--- NOTE | 2020-03-05 08:00 | NUR ---
PATIENT HAS PEG TUBE Addendum: 03/05/20 at 1436 by SARAH CRAFT RN RN Amended: Links added.
--- NOTE | 2020-03-05 08:02 | NUR ---
CRITICAL LAB REPORT NOTIFIED FOR LAB THAT H/H RESULTS THIS MORNING WERE 6.8/ 21.9 , CALL PLACED TO DR Charlene MATA AND ORDERS RECEIVED FOR TYPE AND SCREEN AND TRANSFUSE 1 UNIT PRBC. ORDERS PLACED
[2020-03-05 08:17] LABS: BASOPHILS % (MANUAL) 1 % (0-2); EOSINOPHILS % (MANUAL) 10 % (1-6); LYMPHOCYTES % (MANUAL) 35 % (22-44); MAN.DIFF COMMENT-IMPRESSION MANUAL DIFFERENTIAL; MONOCYTES % (MANUAL) 4 % (2-9); PLATELET MORPHOLOGY COMMENT ADEQUATE; SEGMENTED NEUTROPHILS % 50 % (40-70)
--- NOTE | 2020-03-05 08:35 | NUR ---
D/C CRONIN DC'd CRONIN ORDERED DONAVAN ZHU. dEFLATED BALLON. CATHETER IN TACT. PT ALTAGRACIA WELL. PROVIDED AMAURY CARE POST CATHETER REMOVAL. PLACED A BRIEF ON THE PT. PCP TI AND NURSE ROYA SMITH MADE AWARE OF CRONIN BEING REMOVED AT THIS TIME. TIME TO VOID IS BETWEEN [phone].
[2020-03-05] MEDS: Vitamin B Complex/Vit C/Folic Acid GT SCH (08:50)
[2020-03-05] MEDS: MEROPENEM 1 GM VIAL IVP SCH ×2 (08:50→12:39)
[2020-03-05] MEDS: FERROUS SULFATE 325 MG TABLET.DR PO SCH (08:51)
[2020-03-05] MEDS: IRON SUCROSE COMPLEX 100 MG in SODIUM CHLORIDE 0.9% 50 ML IV SCH (08:53)
[2020-03-05] MEDS: PANTOPRAZOLE 40 MG/VIAL IVP SCH ×2 (08:53→20:49)
[2020-03-05] MEDS ORDERED: SODIUM CHLORIDE 0.9% 500ML 500 ML IV ONE (12:16)
[2020-03-05] MEDS ORDERED: POTASSIUM CHLORIDE 20 MEQ ERTAB PO PRN (13:15)
[2020-03-05] MEDS ORDERED: POTASSIUM CHLORIDE 10% ELIXIR 20 MEQ/15 ML UDCUP PO PRN (13:15)
[2020-03-05] MEDS ORDERED: POTASSIUM CHLORIDE 20MEQ/100ML 100 ML IV PRN ×2 (13:15)
[2020-03-05] MEDS ORDERED: LIDOCAINE HCL-MPF 1% 2ML VIAL IV PRN (13:15)
--- NOTE | 2020-03-05 16:01 | NUR ---
CM Note: HNR pending approval CM spoke to Sabina Carrasquillo, received updated clinical, covid post acute care assessments. EMS arranged and faxed for today in case pt receive approval, primary nurse to call [facility] once pt ready to DC. Pt pending approval. Primary nurse pending approval. CM to cont to follow up.
--- NOTE | 2020-03-05 16:03 | NUR ---
RD FOLLOW UP NOTE Pt tolerating Tube Feedings, Jevity 1.5 @40mls/hr. As medically feasible, recommend to increase tube feeding rate goal to 50mls/hr (1440 kcal, 90gm protein) to meet Pt adjusted nutritional needs. RD to continue to monitor. Please notify as nutritional concerns arise. Thank you. Addendum: 03/05/20 at [address] Amended: Links added.
[2020-03-05] MEDS: LEVOFLOXACIN 500 MG/D5W 100 ML 100 ML IV SCH (18:34)
--- NOTE | 2020-03-05 20:50 | NUR ---
MEDS SHIFT ASSESSMENT DONE, PLEASE REFER TO CHART. PT IS NON-VERBAL BUT IS AWAKE. WITH FLAT AFFECT BUT IS COOPERATIVE. DUE MEDS ADMINISTERED, TOLERATED WELL. NOTED TO HAVE DIRTY DIAPER. PCP IN TO GIVE PT A BED BATH. Addendum: 03/05/20 at 2341 by KRISTINE MICHAEL RN RN Amended: Links added.
--- NOTE | 2020-03-06 02:00 | NUR ---
ROUNDS PT RESTING WELL. NO DISTRESS NOTED. KEPT COMFORTABLE. WILL MONITOR PT.
[2020-03-06 03:25] VITALS: BP 130/61
[2020-03-06 05:21] LABS: BASOPHILS % (AUTO) 0.4 % (0.0-5.0); EOSINOPHILS % (AUTO) 8.6 % (0.0-8.0); HEMATOCRIT 28.1 % (36-48); LYMPHOCYTES % (AUTO) 30.3 % (21.0-51.0); MEAN CORPUSCULAR HEMOGLOBIN 27.1 pg (27.0-33.0); MEAN CORPUSCULAR HGB CONC 31.3 g/dL (32.0-36.0); MEAN CORPUSCULAR VOLUME 86.5 fL (79-99); MONOCYTES % (AUTO) 10.1 % (3.0-13.0); NUCLEATED RED BLOOD CELLS 0.3 % (0.0-0.19); PLATELET COUNT (AUTO) 300 K/uL (130-400); RED BLOOD CELL COUNT(AUTO) 3.25 MIL/uL (4.00-5.50); RED CELL DISTRIBUTION WIDTH 23.5 % (11.0-15.5); WHITE BLOOD COUNT (AUTO) 7.1 K/uL (4.8-10.8)
--- NOTE | 2020-03-06 05:40 | NUR ---
DRAW PCP IN AND CHANGED PT'S DIAPER. RE-POSITIONED COMFORTABLY IN BED. BLOOD DRAWN FROM PICC. ALL PORTS FLUSHES WELL WITH GOOD BLOOD RETURN. SPECIMEN COLLECTED THEN SENT TO LAB FOR ANALYSIS. FOR MORE CARE.
[2020-03-06 05:43] LABS: CREATININE 0.5 mg/dL (0.5-1.5); MAGNESIUM 1.8 mg/dL (1.80-2.40)
[2020-03-06] MEDS: INSULIN HUMULIN R 100 UNIT/ML 3ML SQ SCH ×3 (05:43→18:00)
[2020-03-06] MEDS: MAGNESIUM 2GM PREMIX 50ML 50 ML IV PRN (06:22)
[2020-03-06 08:41] VITALS: BP 151/74
[2020-03-06] MEDS: IRON SUCROSE COMPLEX 100 MG in SODIUM CHLORIDE 0.9% 50 ML IV SCH (09:55)
[2020-03-06] MEDS: Vitamin B Complex/Vit C/Folic Acid GT SCH (09:55)
[2020-03-06] MEDS: PANTOPRAZOLE 40 MG/VIAL IVP SCH (09:56)
[2020-03-06] MEDS: FERROUS SULFATE 325 MG TABLET.DR PO SCH (09:56)
--- NOTE | 2020-03-06 10:00 | NUR ---
CM Note: EMS request faxed to [facility] [employer] CM faxed EMS request and clinicals to [employer], confirmation received. Pending approval. CM to cont to follow up.
[2020-03-06 12:51] VITALS: BP 142/63
--- NOTE | 2020-03-06 14:30 | NUR ---
REPORT CALL TO [facility] ORDERERS RECEIVED FOR PATIENT DISCHARGE AND MEDICATION RECONCILIATION FAX TO [facility]. REPORT CALLED AND NURSE GIVEN MY DIRECT LINE FOR ANY QUESTIONS. PATIENT CHART IS BEING COPIED . PATIENT WILL TRANSPORTED TO CENTER MY EMS, ORDERS FOR PATIENT TO KEEP PICC LINE REPORTED TO NURSE, NO QUESTIONS AT THIS TIME
--- NOTE | 2020-03-06 15:19 | NUR ---
DAUGHTER NOTIFIED MY PHONE THAT HER MOTHER HAS BEEN ACCEPTED AND THAT PATIENT WILL BE TRANSFERRED TO [facility] TODAY BY EMS. PHONE NUMBER TO CENTER GIVEN TO DAUGHTER .
[2020-03-06 15:45] VITALS: BP 150/55
[2020-03-06] MEDS: LEVOFLOXACIN 500 MG/D5W 100 ML 100 ML IV SCH (18:10)
[2020-03-06] MEDS: SODIUM CHLORIDE 0.9% 1000ML 1,000 ML IV SCH (18:11)
--- NOTE | 2020-03-06 18:45 | NUR ---
EMS EMS HERE TO PATHOLOGY TRANSCRIPTIONIST PATIENT FOR TRANSPORT TO [facility], PEG TUBE FLUSHED AND CLAMPED, DISCONTENTED IV FLUID AND PICC LINE FLUSHED. COPY OF CHART GIVE TO EMS WITH TRANSPORT PAPER AND H&P, NO QUESTIONS AT THIS TIME PATIENT LEFT WITH EMS.
== END 2020-03-06 18:40 | DRG 870 ==
LOC: EDBD 23:37 → EDH 23:37 → EDHIP 02-17 02:55 → DAHIP 02-17 08:13 → 2AH 02-21 12:07 → DAHIP 02-21 12:11 → 4BH 02-22 18:33 → 4AH 02-25 14:33 → 3DH 02-26 11:43 → UNDODISIN 03-06 17:45
PROVIDERS: ADMIT Internal Medicine Critical Care Medicine; ATTEND Internal Medicine Critical Care Medicine
PROC: 0BH17EZ Insertion of Endotracheal Airway into Trachea, Via Natural or Artificial Opening (ICD-10-PCS; 2020-02-17)
PROC: 02HV33Z Insertion of Infusion Device into Superior Vena Cava, Percutaneous Approach (ICD-10-PCS; 2020-02-17)
PROC: 5A1955Z Respiratory Ventilation, Greater than 96 Consecutive Hours (ICD-10-PCS; 2020-02-17)
PROC: B548ZZA Ultrasonography of Superior Vena Cava, Guidance (ICD-10-PCS; 2020-02-17)
PROC: 5A09357 Assistance with Respiratory Ventilation, Less than 24 Consecutive Hours, Continuous Positive Airway Pressure (ICD-10-PCS; 2020-02-20)
PROC: 0DH63UZ Insertion of Feeding Device into Stomach, Percutaneous Approach (ICD-10-PCS; principal; 2020-02-29)
PROC: 30233N1 Transfusion of Nonautologous Red Blood Cells into Peripheral Vein, Percutaneous Approach (ICD-10-PCS; 2020-03-05)
DX: A41.9 Sepsis, unspecified organism (principal); R65.21 Severe sepsis with septic shock; G92 Toxic encephalopathy; J15.1 Pneumonia due to Pseudomonas; J96.01 Acute respiratory failure with hypoxia; N17.9 Acute kidney failure, unspecified; E87.1 Hypo-osmolality and hyponatremia; N39.0 Urinary tract infection, site not specified; E87.0 Hyperosmolality and hypernatremia; R65.20 Severe sepsis without septic shock; E86.9 Volume depletion, unspecified; F02.80 Dementia in other diseases classified elsewhere, unspecified severity, without behavioral disturbance, psychotic disturbance, mood disturbance, and anxiety; G30.9 Alzheimer's disease, unspecified; B96.4 Proteus (mirabilis) (morganii) as the cause of diseases classified elsewhere; E86.0 Dehydration; D63.1 Anemia in chronic kidney disease; E11.22 Type 2 diabetes mellitus with diabetic chronic kidney disease; I12.9 Hypertensive chronic kidney disease with stage 1 through stage 4 chronic kidney disease, or unspecified chronic kidney disease; L98.429 Non-pressure chronic ulcer of back with unspecified severity; N18.9 Chronic kidney disease, unspecified; Z74.01 Bed confinement status; Z83.3 Family history of diabetes mellitus; Z93.1 Gastrostomy status; Y95 Nosocomial condition; Z79.84 Long term (current) use of oral hypoglycemic drugs; Z79.899 Other long term (current) drug therapy; R13.12 Dysphagia, oropharyngeal phase
CPT/HCPCS: 31500; 31720; 36415; 36430; 36600; 43246; 70450; 70551; 71045; 71250; 74176; 74230; 76770; 80048; 80053; 81001; 82140; 82270; 82435; 82550; 82570; 82728; 82803; 82947; 82948; 83540; 83550; 83605; 83735; 83874; 83880; 83930; 83935; 84100; 84132; 84145; 84295; 84300; 84484; 84550; 85018; 85025; 85027; 85610; 85730; 86850; 86900; 86901; 86922; 87040; 87071; 87077; 87088; 87186; 87205; 87804; 92610; 92611; 93005; 93306; 94002; 94003; 94150; 94640; 97039; 99291; A4606; C1751; C1894; C9113; G0378; J0330; J0690; J1644; J1756; J1956; J2020; J2185; J2370; J2543; J2704; J3475; J3480; J3490; J7030; J7040; J7070; P9016